=== PATIENT | female | born 1970 | race Caucasian/White ===

== ENCOUNTER 2017-10-29 07:17 | Observation (INO) | payer OTHER ==
[~2017-10-29] VITALS: Ht 167.6 cm; Wt 53.8 kg
[~2017-10-29 07:17] MED LIST: ALBU8.5H5 INH; MONT10TA6 PO; OMEP20TA62 PO
[2017-10-29 08:48] LABS: BASOPHILS # (AUTO) 0.02 x10^3/uL (0-0.1); BASOPHILS % (AUTO) 0 % (0-1); EOSINOPHILS # (AUTO) 0.01 x10^3/uL (0-0.4); EOSINOPHILS % (AUTO) 0 % (1-7); LYMPHOCYTES # (AUTO) 1.17 x10^3/uL (1-3.4); LYMPHOCYTES % (AUTO) 15 % (22-44); MD NO; MEAN CORPUSCULAR HEMOGLOBIN 31.1 pg (27.0-34.8); MEAN CORPUSCULAR HGB CONC 33.7 g/dL (32.4-35.8); MEAN CORPUSCULAR VOLUME 92.5 fL (80-100); MONOCYTES # (AUTO) 0.44 x10^3/uL (0.2-0.8); MONOCYTES % (AUTO) 6 % (2-9); NEUTROPHILS # (AUTO) 6.39 x10^3/uL (1.8-6.8); NEUTROPHILS % (AUTO) 80 % (42-75); PLATELET COUNT 264 x10^3/uL (130-400); RED BLOOD COUNT 4.83 x10^6/uL (3.82-5.3); RED CELL DISTRIBUTION WIDTH 13.3 % (9.6-15.2)
[2017-10-29 08:59] LABS: ALANINE AMINOTRANSFERASE 15 U/L (12-78); ALBUMIN 4.2 g/dL (3.4-5.0); ANION GAP 8 mmol/L (5-15); CALCIUM 8.9 mg/dL (8.5-10.1); CHLORIDE 107 mmol/L (98-107); CREATININE 0.87 mg/dL (0.55-1.02)
[2017-10-29 09:04] LABS: ALKALINE PHOSPHATASE 70 U/L (45-117); BILIRUBIN,TOTAL 0.4 mg/dL (0.2-1.0); FREE T4 (FREE THYROXINE) 1.05 ng/dL (0.76-1.46); TOTAL PROTEIN 8.4 g/dL (6.4-8.2); TROPONIN I < 0.015 ng/mL (0.000-0.045)
[2017-10-29] MEDS ORDERED: MAALOX/HYOSCYAMINE/LIDOCAINE 45 ML BTL ONE (09:15)
[2017-10-29] MEDS ORDERED: MAALOX/HYOSCYAMINE/LIDOCAINE 45 ML BTL PO ONE (09:30)
[2017-10-29] MEDS ORDERED: FLUT12AE INH (10:51)
[2017-10-29] MEDS ORDERED: LEVA15HF4 INH (10:51)
[2017-10-29] MEDS ORDERED: METOCLOPRAMIDE 5 MG/ML, 2ML IVPush PRN (11:30)
[2017-10-29] MEDS ORDERED: ONDANSETRON 2MG/ML, 2ML IVPush PRN (11:30)
[2017-10-29] MEDS ORDERED: PROMETHAZINE 25 MG/ML, 1ML IM PRN (11:30)
[2017-10-29] MEDS ORDERED: ONDANSETRON ODT 4 MG PO PRN (11:30)
[2017-10-29] MEDS ORDERED: POTASSIUM CHLORIDE 20 MEQ TAB.ER.PRT PO ONE (11:30)
[2017-10-29] MEDS: TEMPLATE NON-FORMULARY MED. (Levalbuterol Tartrate** (Xopenex Hfa**) 1 PUFF) INH SCH ×2 (12:00→17:46)
[2017-10-29] MEDS ORDERED: MONTELUKAST 10 MG TABLET PO SCH ×2 (12:00→21:00)
[2017-10-29] MEDS: FLUTICASONE PROPIONATE INH SCH ×2 (12:00→20:07)
[2017-10-29 12:35] VITALS: BP 113/76
[2017-10-29] MEDS ORDERED: MULT-658 PO (12:37)
[2017-10-29 12:47] LABS: TROPONIN I < 0.015 ng/mL (0.000-0.045)
[2017-10-29] MEDS ORDERED: [UNRECOGNIZED DRUG - REMARK] MC SCH (13:00)
[2017-10-29] MEDS ORDERED: IBUPROFEN 200 MG TABLET PO PRN ×2 (13:00→15:59)
[2017-10-29 14:00] VITALS: BP 110/62
[2017-10-29] MEDS ORDERED: POTASSIUM CHLORIDE 20 MEQ TAB.ER.PRT ONE ×2 (15:41→15:47)
[2017-10-29 18:03] LABS: TROPONIN I < 0.015 ng/mL (0.000-0.045)
[2017-10-29 20:21] VITALS: BP 101/64
[2017-10-30 01:16] VITALS: BP 108/63
[2017-10-30 04:46] LABS: BASOPHILS # (AUTO) 0.08 x10^3/uL (0-0.1); BASOPHILS % (AUTO) 1 % (0-1); EOSINOPHILS % (AUTO) 3 % (1-7); LYMPHOCYTES # (AUTO) 2.43 x10^3/uL (1-3.4); LYMPHOCYTES % (AUTO) 34 % (22-44); MD NO; MEAN CORPUSCULAR HEMOGLOBIN 31.1 pg (27.0-34.8); MEAN CORPUSCULAR HGB CONC 33.5 g/dL (32.4-35.8); MEAN CORPUSCULAR VOLUME 92.8 fL (80-100); MEAN PLATELET VOLUME 9.8 fL (7.4-10.4); MONOCYTES # (AUTO) 0.52 x10^3/uL (0.2-0.8); MONOCYTES % (AUTO) 7 % (2-9); NEUTROPHILS # (AUTO) 3.85 x10^3/uL (1.8-6.8); NEUTROPHILS % (AUTO) 54 % (42-75); PLATELET COUNT 233 x10^3/uL (130-400); RED BLOOD COUNT 4.25 x10^6/uL (3.82-5.3); RED CELL DISTRIBUTION WIDTH 13.3 % (9.6-15.2)
[2017-10-30 04:59] LABS: ALBUMIN 3.3 g/dL (3.4-5.0); ANION GAP 4 mmol/L (5-15); CALCIUM 8.4 mg/dL (8.5-10.1); CHLORIDE 110 mmol/L (98-107)
[2017-10-30 05:06] LABS: ALANINE AMINOTRANSFERASE 13 U/L (12-78); ALKALINE PHOSPHATASE 51 U/L (45-117); BILIRUBIN,TOTAL 0.4 mg/dL (0.2-1.0); CREATININE 0.75 mg/dL (0.55-1.02); TOTAL PROTEIN 6.6 g/dL (6.4-8.2)
[2017-10-30] MEDS: TEMPLATE NON-FORMULARY MED. (Levalbuterol Tartrate** (Xopenex Hfa**) 1 PUFF) INH SCH ×3 (05:28→12:00)
[2017-10-30 07:25] VITALS: BP_SYST 104; BP_SYST 184; BP_DIAS 53; BP_DIAS 68
[2017-10-30] MEDS: FLUTICASONE PROPIONATE INH SCH (08:09)
[2017-10-30] MEDS: SODIUM CHLORIDE 0.9% 1,000 ML IV SCH ×2 (12:53→16:47)
[2017-10-30 14:14] VITALS: BP 119/79
[2017-10-30] MEDS ORDERED: HEPARIN 1,000 UNITS/ML, 10ML ONE (14:44)
[2017-10-30] MEDS ORDERED: MIDAZOLAM 1 MG/ML, 2ML ONE (14:44)
[2017-10-30] MEDS ORDERED: TICAGRELOR 90 MG TABLET ONE (14:44)
[2017-10-30] MEDS ORDERED: VERAPAMIL 2.5 MG/ML, 2ML ONE (14:44)
[2017-10-30] MEDS ORDERED: LIDOCAINE 2%, 20ML ONE (14:44)
[2017-10-30] MEDS ORDERED: BIVALIRUDIN 250 MG ONE (14:44)
[2017-10-30] MEDS ORDERED: FENTANYL PF 100 MCG/2ML ONE (14:44)
[2017-10-30] MEDS ORDERED: SODIUM CHLORIDE 0.9% 1,000 ML IV SCH (15:33)
[2017-10-30] MEDS ORDERED: ACETAMINOPHEN 325 MG TABLET PO PRN (17:00)
== END 2017-10-30 19:15 | disposition home or self-care (01) ==
LOC: ED 09:18 → INTOOBSV 10:00 → 5SO 10:00
PROVIDERS: ADMIT Internal Medicine; ATTEND Internal Medicine
DX: R07.89 Other chest pain (principal); I47.1 Supraventricular tachycardia; I48.91 Unspecified atrial fibrillation; E87.6 Hypokalemia; K21.9 Gastro-esophageal reflux disease without esophagitis; J45.909 Unspecified asthma, uncomplicated; F41.0 Panic disorder [episodic paroxysmal anxiety]; Z95.0 Presence of cardiac pacemaker
CPT/HCPCS: 36415; 71045; 80053; 83690; 83735; 84100; 84439; 84443; 84484; 84703; 85025; 93005; 93017; 93306; 93458; 99156; 99285; C1894; G0378; J1644; J2250; J3010; J3490; J7030; Q9967; J0583